=== PATIENT | female | born 1995 | race Two or more races ===

== ENCOUNTER 2025-05-23 20:55 | Emergency (ER) | payer OTHER, SELFPAY ==
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
[2025-05-23 20:58] VITALS: BMI 31.9
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
[2025-05-23 21:04] VITALS: BP 120/80; PULSE 97; RESP 18; TEMP 36.9
== END 2025-05-23 22:48 ==
LOC: SERX 21:52
PROVIDERS: Emergency Provider Emergency Medicine
DX: Z02.89 Encounter for other administrative examinations (principal); M25.531 Pain in right wrist
CPT/HCPCS: 73110; 99283